=== PATIENT | male | born 2000 | race Hispanic/Latino ===

== ENCOUNTER 2024-10-05 14:03 | Emergency (ER) | payer SELFPAY ==
[2024-10-05] MEDS ORDERED: Ondansetron PF 4 MG/2 ML Vial ONE (14:42)
[2024-10-05] MEDS ORDERED: Ketorolac Tromethamine 30 MG (1 mL) VIAL ONE (14:42)
[2024-10-05 14:57] LABS: #Basophils 0.04 10x3/uL (0.0-0.2); #Eosinophils 0.13 10x3/uL (0.0-0.7); #Monocytes 1.16 10x3/uL (0.11-0.59); #Neutrophils 9.67 10x3/uL (1.40-6.50); %Basophils 0.3 % (0.0-1.0); %Eosinophils 1.1 % (0.0-10.0); %Lymphocytes 8.1 % (21.0-51.0); %Monocytes 9.7 % (0.0-10.0); %Neutrophils 80.5 % (42.0-75.0); Hematocrit 42.8 % (42.0-52.0); Hemoglobin 14.4 g/dL (14.0-18.0); Mean Corpuscular Hemoglobin 28.7 pg (27.0-31.0); Mean Corpuscular Volume 85.3 fL (78.0-98.0); Platelet Count 207 10x3/uL (130-400); Red Blood Cell (RBC) Count 5.02 mill/uL (4.70-6.10); White Blood Cell (WBC) Count 12.01 10x3/uL (4.8-10.8)
[2024-10-05 15:21] LABS: ALT (SGPT) 23 U/L (Less than 45); AST (SGOT) 25 U/L (11-34); Albumin 4.1 g/dL (3.1-4.5); Alkaline Phosphatase 74 U/L (40-110); Anion Gap 18 mmol/L (10-20); BUN (Urea Nitrogen) 10 mg/dL (8.9-20.6); Bilirubin, Total 0.6 mg/dL (0.3-1.2); Calc. Creatinine Clearance 0 mL/min (70-130); Calcium 9.1 mg/dL (7.8-10.44); Carbon Dioxide 21 mmol/L (22-29); Chloride 101 mmol/L (98-107); Globulin 3.6 g/dL (2.4-3.5); Glucose 102 mg/dL (70-105); Lipase 20 U/L (8-78); Potassium 3.7 mmol/L (3.5-5.1); Sodium 136 mmol/L (136-145)
[2024-10-05 15:24] LABS: Bacteria/HPF None Seen HPF (None Seen); CAUTI Indications for Culture Fever or rigors; Glucose, Urine (Dipstick) Normal (Negative); Leukocyte Negative Leu/uL (Negative); Protein, Urine (Dipstick) 30 mg/dL (Neg-Trace); Specific Gravity, Urine 1.033 (1.002-1.036); WBC/HPF 0-3 HPF (0-3)
[2024-10-05 15:26] LABS: Urine Culture Reflex No No
[2024-10-05] MEDS ORDERED: Acetaminophen 500 MG TAB ONE (15:43)
== END 2024-10-05 18:58 | disposition home or self-care (01) ==
LOC: ERS 14:03
DX: K52.9 Noninfective gastroenteritis and colitis, unspecified (principal)
CPT/HCPCS: 74176; 80053; 81001; 83605; 83690; 85025; 87428; 96374; 96375; J1885; J2405